=== PATIENT | female | born 1960 | race Caucasian/White ===

== ENCOUNTER 2016-12-02 14:43 | Emergency (ER) | payer OTHER ==
[2016-12-02 14:53] VITALS: BP 143/101
--- NOTE | 2016-12-02 15:51 | UC ---
Hip/Pelvis Pain - HPI Summary HPI Summary: 56 yo female was sent here by her company nurse for evaluation of left hip and/ thigh swelling No trauma Symptoms started 2 days ago (initially around greater trochanter) Now unable to left left leg due to pain At rest she has significant pain with wt bearing pain is severe now feels swelling and warmth left quadriceps - History Of Current Complaint Chief Complaint: UCLowerExtremity Stated Complaint: LEFT LEG COMPLAINT Time Seen by Provider: 12/02/16 15:26 Hx Obtained From: Patient Hx Last Menstrual Period: 1 yr Onset/Duration: Sudden Onset, Lasting Days Timing: Constant Severity Initially: Mild Severity Currently: Severe Pain Intensity: 10 - with wt bearing Pain Scale Used: 0-10 Numeric Location: Discrete At: - left quadriceps - radiates to below left knee Aggravating Factor(s): Weight Bearing Alleviating Factor(s): Nothing Associated Signs And Symptoms: Positive: Swelling. Negative: Redness, Bruising , Fever, Weakness, Dizziness, Syncope, Abdominal Pain, Knee Pain - Allergies/Home Medications Allergies/Adverse Reactions: Allergies Allergy/AdvReac Type Severity Reaction Status Date / Time cats Allergy Eyes Uncoded 12/22/15 18:51 Itchy/Swollen/Red/Watery ragweed Allergy Eyes Uncoded 12/02/16 14:53 Itchy/Swollen/Red/Watery Home Medications: Home Medications Aspirin TAB* [Aspirin 325 MG TAB*] 650 mg PO ONCE PRN 12/02/16 [History Confirmed 12/02/16] Inphtdx-Widandchgbxyf-Oltruvuq [Excedrin Migraine] 1 tab PO ONCE PRN 12/02/16 [ History Confirmed 12/02/16] Metformin HCl [Fortamet] 1 tab PO QPM 12/02/16 [History Confirmed 12/02/16] PMH/Surg Hx/FS Hx/Imm Hx Previously Healthy: Yes Endocrine History: Diabetes Cardiovascular History: Hypertension, Other Other Cardiovascular History: WPW- abalation - Surgical History Surgical History: Yes Surgery Procedure, Year, and Place: , cardiac ablation ~1993 - Family History Known Family History: Positive: Cardiac Disease, Hypertension - Social History Alcohol Use: Occasionally Substance Use Type: None Smoking Status (MU): Former Smoker Have You Smoked in the Last Year: No When Did the Patient Quit Smoking/Using Tobacco: 2009 - Immunization History Most Recent Influenza Vaccination: [id number] Review of Systems Constitutional: Negative Skin: Negative Eyes: Negative ENT: Negative Respiratory: Negative Cardiovascular: Negative Gastrointestinal: Negative Genitourinary: Negative Motor: Negative Neurovascular: Negative Musculoskeletal: Myalgia Neurological: Negative Psychological: Negative Is Patient Immunocompromised?: No All Other Systems Reviewed And Are Negative: Yes Physical Exam Triage Information Reviewed: Yes Appearance: Well-Appearing, Well-Nourished, Pain Distress Vital Signs: Initial Vital Signs Temp 99.3 F 12/02/16 14:46 Pulse 94 12/02/16 14:46 Resp 20 12/02/16 14:46 BP 143/101 12/02/16 14:46 Eyes: Positive: Conjunctiva Clear ENT: Positive: Hearing grossly normal. Negative: Nasal congestion, Nasal drainage, Trismus, Muffled/hoarse voice Neck: Positive: Supple, Nontender, No Lymphadenopathy Respiratory: Positive: Lungs clear, Normal breath sounds, No respiratory distress Cardiovascular: Positive: RRR, Murmur:Sys:Grade _?_/ - IV/ holosystolic murmur. Negative: No Murmur Abdomen Description: Positive: Nontender, No Organomegaly, Soft. Negative: Bruit, CVA Tenderness (R), CVA Tenderness (L), Distended Bowel Sounds: Positive: Present Musculoskeletal: Positive: Other: - see image Neurological: Positive: Alert Psychological Exam: Normal Skin Exam: Normal Hip Injury Course/Dx - Course Course Of Treatment: In light of patients severe pain I suggested that she go to a hospital for further investigation. She refuses to go to [facility]. She declines EMS transfer. She would like to go to [facility] and states her will take her there. - Differential Dx/Diagnosis Provider Diagnoses: left thigh pain and swelling of uncertain cause. heart murmur Discharge - Discharge Plan Condition: Stable Disposition: [facility] Referrals: [facility] PHYSICIAN REFERRAL [Outside] No Primary Care Phys,NOPCP [Primary Care Provider] - Additional Instructions: I am unsure or the cause of your left thigh pain and swelling I think it needs further investigation I suggest you go to an ER for further evaluation I hear a heart murmur on today's exam This will need further investigation see your MD in follow up Images Front/Back of Body, Lg ([place]): 1 - tender/swollen 2 - pain radiates here 3 - prominent varicosities (states this is chronic). no calf pain or swelling or warmth
== END 2016-12-02 15:48 | disposition short-term general hospital (02) ==
LOC: UCCORT 14:43
DX: M79.652 Pain in left thigh (principal); I10 Essential (primary) hypertension; J30.1 Allergic rhinitis due to pollen; E11.9 Type 2 diabetes mellitus without complications; Z87.891 Personal history of nicotine dependence
CPT/HCPCS: 99202; G0463

== ENCOUNTER 2016-12-02 16:42 | Emergency (ER) | payer OTHER ==
--- NOTE | 2016-12-02 17:57 | RAD ---
Indication: Left lateral thigh pain. Duplex Doppler sonography of the deep venous system of the left lower extremity deep venous system was performed. Bilaterally the common femoral veins appear patent and compressible. Left proximal greater saphenous vein, proximal deep femoral vein, femoral vein, popliteal vein, posterior tibial veins and peroneal veins appear patent and compressible. IMPRESSION: NO EVIDENCE OF DEEP VENOUS THROMBOSIS IS IDENTIFIED.
[2016-12-02] MEDS ORDERED: Cyclobenzaprine TAB* 10 MG PO ONE (20:39)
[2016-12-02] MEDS ORDERED: Ketorolac INJ* 30 MG/ML 1 ML VIAL IM ONE (20:39)
[2016-12-02] MEDS ORDERED: HYDROcodone/ACETAMIN 5-325 MG* 1 TAB PO ONE (20:39)
--- NOTE | 2016-12-02 20:40 | ED ---
Lower Extremity - HPI Summary HPI Summary: 56 female presents to ED from with complaints of left upper thigh pain and some swelling that has been ongoing for 2 days and has not improved. Patient was concerned for blood clot. Denies bruising, redness or obvious deformity. States she does feel a sore, firm muscle that is tender to palpation. Pain is worsened by movement, walking and touch. Pain is decreased with rest. Has not taken any medications for the pain other than aspirin around 2 pm today which did not seem to help significantly. No known injury or trauma. States she thinks it is a muscle cramp. Worsens at times. She has had them in the past, and would eat bananas which helped her. Hasn't seen PCP in 1 year due to him retiring and is in the process of finding a new one. Denies chest pain, numbness /tingling, weakness, radiation of pain and weakness. No other complaints at this time. No PMHx other than HTN and Type II DM, that she is medicated for. Is able to bear weight and walk however worsens pain. - History of Current Complaint Chief Complaint: EDExtremityLower Stated Complaint: LT LEG SWELLING-SENT FROM Time Seen by Provider: 12/02/16 19:17 Hx Obtained From: Patient Hx Last Menstrual Period: 1 yr Mechanism Of Injury: Unknown Onset/Duration: Days Severity Initially: Moderate Severity Currently: Severe Pain Intensity: 10 Pain Scale Used: 0-10 Numeric Timing: Constant, Lasting Days - 2 Location: Is Discrete @ - left upper thigh Character Of Pain: Dull, Aching, Spasmodic Associated Signs And Symptoms: Positive: Swelling - minimally Aggravating Factor(s): Standing, Weight Bearing, Other - touch Alleviating Factor(s): Rest Able to Bear Weight: Yes - Allergies/Home Medications Allergies/Adverse Reactions: Allergies Allergy/AdvReac Type Severity Reaction Status Date / Time cats Allergy Eyes Uncoded 12/22/15 18:51 Itchy/Swollen/Red/Watery ragweed Allergy Eyes Uncoded 12/02/16 14:53 Itchy/Swollen/Red/Watery PMH/Surg Hx/FS Hx/Imm Hx Endocrine/Hematology History: Reports: Hx Diabetes - type II Cardiovascular History: Reports: Hx Hypertension History: Reports: Hx Kidney Stones - per pt, hx of left kidney stones approx 20 years ago - Surgical History Surgery Procedure, Year, and Place: , cardiac ablation ~1993 - Immunization History Immunizations Up to Date: Yes Infectious Disease History: No Infectious Disease History: Denies: Traveled Outside the [place] in Last 30 Days - Family History Known Family History: Positive: Cardiac Disease, Hypertension - Social History Alcohol Use: Occasionally Substance Use Type: Reports: None Smoking Status (MU): Former Smoker Have You Smoked in the Last Year: No Review of Systems Constitutional: Negative Cardiovascular: Negative Respiratory: Negative Gastrointestinal: Negative Positive: Arthralgia, Myalgia, Decreased ROM - right upper thigh Skin: Negative Neurological: Negative All Other Systems Reviewed And Are Negative: Yes Physical Exam Triage Information Reviewed: Yes Vital Signs On Initial Exam: Initial Vitals Temp Pulse Resp BP Pulse Ox 97.9 F 74 20 150/84 99 12/02/16 16:59 12/02/16 16:59 12/02/16 16:59 12/02/16 16:59 12/02/16 16:59 Vital Signs Reviewed: Yes Appearance: Positive: Well-Appearing, Well-Nourished, Pain Distress - mild to moderate with movement, comfortable when sitting Skin: Positive: Warm, Skin Color Reflects Adequate Perfusion, Dry, Other - no edema, ecchymosis, obvious deformity, erythema, firmness or obvious concerning PE findings noted. Negative: Cold, Numb, Cyanosis @, Pale, Erythema @ Head/Face: Positive: Normal Head/Face Inspection Eyes: Positive: Conjunctiva Clear ENT: Positive: Hearing grossly normal Neck: Positive: Supple, Nontender Respiratory/Lung Sounds: Positive: Clear to Auscultation, Breath Sounds Present. Negative: Rales, Rhonchi, Wheezes Cardiovascular: Positive: Normal, RRR, Pulses are Symmetrical in both Upper and Lower Extremities - 2+ pedal and radial, Murmur - systolic grade 2. Negative: Rub, Leg Edema Left, Leg Edema Right Abdomen Description: Positive: Nontender, Soft Bowel Sounds: Positive: Present Musculoskeletal: Positive: Normal, Strength/ROM Intact - however causes pain with use of left LE against resistance with extension/flexion of hip and knee, Pain @ - to palpation of left upper lateral quadricep, Other. Negative: Limited @, Interruption @, Abnormal @, Edema Left Neurological: Positive: Normal, Sensory/Motor Intact - sensation intact, Alert, Oriented to Person Place, Time, CN Intact II-III, Reflexes Intact, NV Bundle Intact Distally, Normal Gait - limping/favoring right side - [place] Coma Scale Coma Scale Total: 15 Diagnostics - Vital Signs Vital Signs Temp Pulse Resp BP Pulse Ox 12/02/16 18:42 98.4 F 75 20 131/70 96 12/02/16 16:59 97.9 F 74 20 150/84 99 - Laboratory Lab Statement: Any lab studies that have been ordered have been reviewed, and results considered in the medical decision making process. - Ultrasound No standard instances Ultrasound Interpretation: No Acute Changes - NO EVIDENCE OF DEEP VENOUS THROMBOSIS IS IDENTIFIED. Ultrasound Interpretation Completed By: Radiologist Lower Extremity Course/Dx - Course Course Of Treatment: given toradol, flexeril while in ED. Sent home with norco to help with pain. U/S obtained and ruled out DVT. Normal vitals. No significant PE fidings suggesting other emergent etiology such as compartment syndrome, bony injury, infection etc. Offered lab work to check electrolytes however patient stated she would have this done outpatient and take conservative measures first. Has had previous muscle cramps and low potassium, states she will start eating bananas again to see if it helps. No other symptoms at this time. No other complaints or muscle spasms. Suggested high potassium diet, rest, heating pad and stretching. Naproxen, norco and flexeril. Also given cardiology referral due to possible new systolic murmur noted on exam , asymptomatic. Aware of worsening signs and symptoms to watch out for. Follow up with PCP. Educated on when to return, all questions answered. patient understands and agrees with plan. - Diagnoses Differential Diagnosis/HQI/PQRI: Positive: Arthritis, Contusion, DVT, Infection , Sprain, Strain, Other - muscle cramps Provider Diagnoses: Left leg pain, Muscle cramp, Muscle strain of left lower extremity Discharge - Discharge Plan Condition: Stable Disposition: HOME Prescriptions: Cyclobenzaprine TAB* [Flexeril 10 MG TAB*] 10 mg PO BID PRN #10 tab PRN Reason: Spasms HYDROcodone/ACETAMIN 5-325 MG* [[place] 5-325 TAB*] 1 tab PO Q6H PRN #10 tab MDD 2 PRN Reason: Pain Naproxen TAB* [Naprosyn 375 mg TAB*] 375 mg PO Q8H PRN #15 tab PRN Reason: Pain Patient Education Materials: Leg Cramps (ED), Muscle Spasm (ED), Heart Murmur ( ED), Leg Pain (ED) Forms: *Work Release Referrals: [facility] [Outside] Alexis Gabriel MD [Medical Doctor] - No Primary Care Phys,NOPCP [Primary Care Provider] - Additional Instructions: Take medication given to you at ED as needed for pain. Do not take any other additional pain medication other than this until tomorrow. Take prescribed medication as directed to help with muscle pain/spasms. Take anti-inflammatory naproxen, with food. Flexeril at bedtime as it may make you drowsy. If at home and helps, may take more one during day. Do not drive while taking flexeril or narcotic norco medication. Rest, apply heating pad, gently stretch and massage. May also want to try icey/hot, topical anesthetics. Use pain as your guide, avoid strenuous physical activity, excessive use of leg. Follow up with PCP within 1 week to ensure improvement. Eat plenty of bananas, drink fluids, including milk. Make appointment with human resources advisor for murmur work up, JERRICA. Any new or worsening symptoms please seek medical attention promptly, as discussed (redness, increased pain, swelling, bruising or paleness).
[2016-12-02 21:08] VITALS: BP 126/87
== END 2016-12-02 21:07 | disposition home or self-care (01) ==
LOC: ED 16:42
DX: E11.40 Type 2 diabetes mellitus with diabetic neuropathy, unspecified (principal); R51 Headache; H53.8 Other visual disturbances; R07.9 Chest pain, unspecified; R06.02 Shortness of breath; Z87.891 Personal history of nicotine dependence
CPT/HCPCS: 99282; A9270-GY; J1885

== ENCOUNTER 2018-05-13 15:28 | Emergency (ER) | payer BC, OTHER ==
[2018-05-13 15:55] VITALS: BP 152/85
--- NOTE | 2018-05-13 17:03 | ED ---
Skin Complaint - HPI Summary HPI Summary: 57 yr female with rash, first on legs two weeks ago, and now on trunk. It is itchy, and also red and lichen in appearance. She states it is on her neck and scalp as well now. Denies fever, chills. She does have a cold presently. She denies any new medications. She has no other complaints. - History of Current Complaint Chief Complaint: UCRash Time Seen by Provider: 05/13/18 16:50 Stated Complaint: SKIN COMPLAINT Hx Last Menstrual Period: 1 yr Pain Intensity: 7 - Allergy/Home Medications Allergies/Adverse Reactions: Allergies Allergy/AdvReac Type Severity Reaction Status Date / Time cats Allergy Eyes Uncoded 05/13/18 15:48 Itchy/Swollen/Red/Watery ragweed Allergy Eyes Uncoded 05/13/18 15:48 Itchy/Swollen/Red/Watery Home Medications: Home Medications Betamethasone Cream 1 dose .ROUTE BID 05/13/18 [History] PMH/Surg Hx/FS Hx/Imm Hx Endocrine/Hematology History: Reports: Hx Diabetes - type II Cardiovascular History: Reports: Hx Hypertension History: Reports: Hx Kidney Stones - per pt, hx of left kidney stones approx 20 years ago - Surgical History Surgery Procedure, Year, and Place: , cardiac ablation ~1993 Infectious Disease History: No Infectious Disease History: Denies: Traveled Outside the [place] in Last 30 Days - Family History Known Family History: Positive: Cardiac Disease, Hypertension - Social History Alcohol Use: Occasionally Substance Use Type: Reports: None Smoking Status (MU): Former Smoker Have You Smoked in the Last Year: No Review of Systems Constitutional: Negative Positive: Rash - itching All Other Systems Reviewed And Are Negative: Yes Physical Exam Triage Information Reviewed: Yes Vital Signs On Initial Exam: Initial Vitals Temp Pulse Resp BP Pulse Ox 97.4 F 68 17 152/85 98 05/13/18 15:50 05/13/18 15:50 05/13/18 15:50 05/13/18 15:50 05/13/18 15:50 Vital Signs Reviewed: Yes Appearance: Positive: Well-Appearing, No Pain Distress Skin: Positive: Warm, Other - generalized rash that is red, slight raised and has some areas that appear lichen like, dermatitis like. No raised boarders, and no secondary impetigo. The patient is itching. No scabs and tracks. The rash has limited areas of confluence but is scattered in multiple areas mostly about 1-2 cm in diameter at most. Head/Face: Positive: Normal Head/Face Inspection Eyes: Positive: EOMI, HARRY ENT: Positive: Pharynx normal, TMs normal, Uvula midline. Negative: Muffled voice, Hoarse voice Neck: Positive: Supple, Nontender Respiratory/Lung Sounds: Positive: Clear to Auscultation, Breath Sounds Present Cardiovascular: Positive: RRR. Negative: Murmur Abdomen Description: Positive: Nontender. Negative: Distended Musculoskeletal: Positive: Strength/ROM Intact Neurological: Positive: Sensory/Motor Intact, Alert, Oriented to Person Place, Time, CN Intact II-III Psychiatric: Positive: Normal Diagnostics - Vital Signs Vital Signs Temp Pulse Resp BP Pulse Ox 05/13/18 15:50 97.4 F 68 17 152/85 98 - Laboratory Lab Statement: Any lab studies that have been ordered have been reviewed, and results considered in the medical decision making process. Course/Dx - Course Course Of Treatment: 57 yr old female with dermatitis like rash. Plan medrol dose stefania. She knows to call her primary care doctor for follow up tomorrow. Any worsening symptoms, fever, chills. She should go to the ER. - Diagnoses Provider Diagnoses: Hypertension, Dermatitis Discharge - Sign-Out/Discharge Documenting (check all that apply): Patient Departure All imaging exams completed and their final reports reviewed: No Studies - Discharge Plan Condition: Good Disposition: HOME Prescriptions: methylPREDNISolone [Medrol Dosepak 4 MG*] 4 mg PO .SEE STEFANIA INSTRUCTION #1 stefania Patient Education Materials: Dermatitis (ED), Hypertension (ED) Referrals: Gayle Monroe NP [Primary Care Provider] - 2 Days - Billing Disposition and Condition Condition: GOOD Disposition: Home
== END 2018-05-13 17:15 | disposition home or self-care (01) ==
LOC: UCCORT 15:28
DX: L30.9 Dermatitis, unspecified (principal); I10 Essential (primary) hypertension; Z87.891 Personal history of nicotine dependence; E11.9 Type 2 diabetes mellitus without complications; Z91.09 Other allergy status, other than to drugs and biological substances
CPT/HCPCS: 99212; G0463

== ENCOUNTER 2019-02-16 15:52 | Emergency (ER) | payer BC ==
[2019-02-16 16:10] VITALS: BP 160/78
--- NOTE | 2019-02-16 16:19 | UC ---
Complaint Female HPI - HPI Summary HPI Summary: 58-year-old female presents with complaints of low back pain 1 week. States pain as a constant ache. Nonradiating. 3 days ago started developing urinary frequency and urgency as well. States her symptoms are very similar to when she had a urinary tract infection in the past. Has history of kidney stones but states this is unlike the pain she had with that. Denies fever, chills, abdominal pain, nausea, vomiting, dysuria, hematuria, vaginal discharge, numbness, tingling, or weakness of the lower extremities, difficulty ambulating , loss of bowel or bladder control. - History Of Current Complaint Chief Complaint: UCGU Stated Complaint: URINARY Time Seen by Provider: 02/16/19 16:03 Hx Obtained From: Patient Hx Last Menstrual Period: 1 yr Pain Intensity: 8 - Allergies/Home Medications Allergies/Adverse Reactions: Allergies Allergy/AdvReac Type Severity Reaction Status Date / Time cats Allergy Eyes Uncoded 02/16/19 16:02 Itchy/Swollen/Red/Watery ragweed Allergy Eyes Uncoded 02/16/19 16:02 Itchy/Swollen/Red/Watery Home Medications: Home Medications Metoprolol Tartrate [Lopressor] 150 mg PO DAILY 02/16/19 [History Confirmed 03/07] PMH/Surg Hx/FS Hx/Imm Hx Cardiovascular History: Hypertension - Surgical History Surgical History: Yes Surgery Procedure, Year, and Place: , cardiac ablation ~1993 - Family History Known Family History: Positive: Cardiac Disease, Hypertension - Social History Occupation: Employed Full-time Lives: With Family Alcohol Use: Weekly Substance Use Type: None Smoking Status (MU): Former Smoker Have You Smoked in the Last Year: No When Did the Patient Quit Smoking/Using Tobacco: 2003 - Immunization History Most Recent Influenza Vaccination: [id number] Review of Systems All Other Systems Reviewed And Are Negative: Yes Constitutional: Negative: Fever, Chills Skin: Positive: Negative. Negative: Rash Respiratory: Positive: Negative Cardiovascular: Positive: Negative Gastrointestinal: Negative: Abdominal Pain, Vomiting, Nausea Genitourinary: Positive: Frequency, Urgency. Negative: Dysuria, Hematuria, Vaginal/Penile Discharge, Abnormal Bleeding Motor: Negative: Weakness Neurovascular: Negative: Decreased Sensation Musculoskeletal: Positive: Other: - low back pain Neurological: Positive: Negative Is Patient Immunocompromised?: No Physical Exam - Summary Physical Exam Summary: GENERAL APPEARANCE: Alert and cooperative obese adult female who appears to be in no acute distress. Neck supple, non-tender without lymphadenopathy. CARDIAC: Normal S1 and S2. No S3, S4 or murmurs. Rhythm is regular. There is no peripheral edema, cyanosis or pallor. Extremities are warm and well perfused. Capillary refill is less than 2 seconds. Peripheral pulses intact. LUNGS: Clear to auscultation without rales, rhonchi, wheezing or diminished breath sounds. ABDOMEN: Positive bowel sounds. Soft, nondistended, nontender. No guarding or rebound. No masses or hepatosplenomegally. No CVA tenderness. MUSKULOSKELETAL: ROM intact to all extremities. No joint erythema or tenderness. Normal muscular development. Normal gait. BACK: No spinal deformity or tenderness, no paraspinous soft tissue tenderness, decreased range of motion, or muscular spasm. NEUROLOGICAL: Strength and sensation symmetric and intact throughout. SKIN: Skin normal color, texture and turgor with no lesions or eruptions. Triage Information Reviewed: Yes Vital Signs: Initial Vital Signs Temp 97.2 F 02/16/19 16:06 Pulse 68 02/16/19 16:06 Resp 22 02/16/19 16:06 BP 160/78 02/16/19 16:06 Pulse Ox 97 02/16/19 16:06 Vital Signs Reviewed: Yes Complaint Female Dx - Course Course Of Treatment: 58-year-old female presents with complaints of low back pain 1 week. States pain as a constant ache. Nonradiating. 3 days ago started developing urinary frequency and urgency as well. States her symptoms are very similar to when she had a urinary tract infection in the past. Has history of kidney stones but states this is unlike the pain she had with that. Denies fever, chills, abdominal pain, nausea, vomiting, dysuria, hematuria, vaginal discharge, numbness, tingling, or weakness of the lower extremities, difficulty ambulating , loss of bowel or bladder control. Afebrile. Hypertensive otherwise vital signs stable. Patient's exam was overall unremarkable. [id number] urinalysis showed trace leukocyte esterase and trace lysed blood. Reviewed results with the patient. We discussed that with the trace leukocyte esterase, the urinary frequency and urgency, and similar symptoms to her UTI in the past that this could be an acute urinary tract infection however cannot fully rule out other causes at this time. A urine culture has been sent and is pending. Discussed with the patient treatment options including watchful waiting pending the urine culture results with targeted treatment should this indicate a UTI versus empiric treatment based on her symptoms and history pending the urine culture results and the patient is electing for the latter. We'll start her on Bactrim DS 1 tablet twice a day 5 days. She is to follow-up with her primary care provider in 3 days if symptoms are not improving. Anticipatory guidance and warning symptoms requiring immediate evaluation the emergency room were reviewed with the patient. Verbalizes understanding and agrees with plan of care. - Differential Dx/Diagnosis Differential Diagnosis/HQI/PQRI: Renal Colic, Ureteral Stone, Urinary Tract Infection, Other - musculoskeletal low back pain, DDD, sciatica Provider Diagnosis: UTI (urinary tract infection) Discharge ED - Sign-Out/Discharge Documenting (check all that apply): Patient Departure All imaging exams completed and their final reports reviewed: No Studies - Discharge Plan Condition: Stable Disposition: HOME Prescriptions: Sulfamethox/Trimethoprim DS* [Bactrim DS 800/160 TAB*] 1 tab PO BID 5 Days #10 tab Patient Education Materials: Urinary Tract Infection in Women (ED) Referrals: Gayle Monroe NP [Primary Care Provider] - 3 Days (If no improvement in symptoms.) Additional Instructions: Your urine test in the clinic today showed a trace amount of white blood cells which could be suggestive of a urinary tract infection however I cannot fully rule out other causes of your low back pain at this time. We will start you on an antibiotic to treat for a possible urinary tract infection. We will also send a urine culture today to see what bacteria grow out and make sure the antibiotic you were prescribed is appropriate to treat the infection. It will take 48-72 hours to get these results. We will contact you if there is any change in your treatment plan. Start Bactrim DS 1 tab twice a day for 5 days. Drink plenty of fluids. To help prevent urinary tract infections: 1) Be sure to wipe from front to back. 2) Urinate immediately after any sexual intercourse. 3) Avoid taking bubble baths. Follow up with your primary care provider in 3 days if symptoms persist. Seek immediate medical attention in the emergency room if you develop fever greater than 100.5 F, have severe abdominal pain, persistent vomiting, numbness , tingling, or weakness of your lower extremities, you are unable to walk, or have any worsening of symptoms. - Billing Disposition and Condition Condition: STABLE Disposition: Home - Attestation Statements Provider Attestation: Per institutional requirements, I have reviewed the chart, however, I was not consulted specifically or made aware of this patient by the midlevel provider. I did not personally evaluate, interact with , or disposition this patient.
== END 2019-02-16 16:40 | disposition home or self-care (01) ==
LOC: UCCORT 15:52
DX: N39.0 Urinary tract infection, site not specified (principal); Z91.09 Other allergy status, other than to drugs and biological substances; Z91.018 Allergy to other foods; Z87.891 Personal history of nicotine dependence
CPT/HCPCS: 81003; 87086; 99212; G0463